=== PATIENT | male | born 1950 ===

== ENCOUNTER 2017-10-30 05:30 | Inpatient (IN) | payer BC ==
[~2017-10-30] VITALS: Ht 172.7 cm; Wt 108.6 kg
[2017-10-30] MEDS ORDERED: LACTATED RINGERS 1,000 ML IV SCH (06:14)
[2017-10-30] MEDS ORDERED: METF500T5 PO (06:16)
[2017-10-30] MEDS ORDERED: ATOR40TA78 PO (06:16)
[2017-10-30] MEDS ORDERED: LISI5TAB7 PO (06:16)
[2017-10-30] MEDS ORDERED: BUPIVACAINE/PF 0.5% ONE (06:20)
[2017-10-30] MEDS ORDERED: THROMBIN 5,000 UNIT VIAL TP ONE ×2 (06:20→08:26)
[2017-10-30] MEDS ORDERED: methylPREDNISolone SOD SUCC 125 MG/2 ML ONE (06:20)
[2017-10-30] MEDS ORDERED: EPINEPHRINE 1 MG/ML, 1ML ONE (06:20)
[2017-10-30] MEDS ORDERED: BACITRACIN 50,000 UNIT ONE (06:21)
[2017-10-30] MEDS ORDERED: MIDAZOLAM 1 MG/ML, 2ML ONE (06:21)
[2017-10-30] MEDS ORDERED: FENTANYL PF 250 MCG/5ML ONE (06:22)
[2017-10-30] MEDS ORDERED: WATER-INJECTION,STERILE 10 ML IV ONE (06:24)
[2017-10-30] MEDS ORDERED: CEFAZOLIN 1,000 MG ONE ×2 (06:24)
[2017-10-30] MEDS ORDERED: PROPOFOL 10 MG/ML, 20ML ONE (06:24)
[2017-10-30] MEDS ORDERED: ROCURONIUM 10MG/ML,5ML ONE (06:25)
[2017-10-30] MEDS ORDERED: NEOSTIGMINE 1 MG/ML, 10ML ONE (06:26)
[2017-10-30] MEDS ORDERED: GLYCOPYRROLATE 0.4 MG/2 ML, 2ML ONE (06:26)
[2017-10-30 06:42] VITALS: BP 155/89
[2017-10-30] MEDS ORDERED: MEPERIDINE/PF 25MG/0.5ML IVPush PRN (07:00)
[2017-10-30] MEDS ORDERED: OxyconTIN ER 10 MG TAB.ER PO ONE (07:00)
[2017-10-30] MEDS ORDERED: HYDROmorphone 1 MG/ML, 1ML IV PRN (07:00)
[2017-10-30] MEDS ORDERED: ONDANSETRON ODT 8 MG PO PRN (07:00)
[2017-10-30] MEDS ORDERED: PROMETHAZINE 25 MG SUPP PR PRN (07:00)
[2017-10-30] MEDS ORDERED: OXYcodone 5 MG/5 ML ORAL.SOL UDC PO PRN (07:00)
[2017-10-30] MEDS ORDERED: FENTANYL PF 100 MCG/2ML IV PRN (07:00)
[2017-10-30] MEDS ORDERED: ACETAMINOPHEN 500 MG TABLET PO ONE (07:00)
[2017-10-30] MEDS ORDERED: PROMETHAZINE 25 MG/ML, 1ML IV PRN (07:00)
[2017-10-30] MEDS ORDERED: LABETALOL 5MG/ML, 20ML IV PRN (07:00)
[2017-10-30] MEDS ORDERED: ONDANSETRON 2MG/ML, 2ML IV PRN (07:00)
[2017-10-30] MEDS ORDERED: PROMETHAZINE 12.5 MG SUPP PR PRN (07:00)
[2017-10-30] MEDS ORDERED: hydrALAzine 20 MG/ML, 1ML IV PRN (07:00)
[2017-10-30] MEDS ORDERED: OxyconTIN ER 10 MG TAB.ER ONE (07:06)
[2017-10-30] MEDS ORDERED: ACETAMINOPHEN 500 MG TABLET ONE (07:06)
[2017-10-30] MEDS ORDERED: BISACODYL 10 MG SUPP PR PRN (09:30)
[2017-10-30] MEDS ORDERED: HYDROmorphone PCA 30 MG/30 ML IV PRN (09:30)
[2017-10-30] MEDS ORDERED: PHARMACY MAY ADJ FOR RENAL FX MC PRN (09:30)
[2017-10-30] MEDS ORDERED: MAGNESIUM HYDROXIDE 8%, 30ML UDC PO PRN (09:30)
[2017-10-30] MEDS ORDERED: INSULIN REGULAR 100 UNITS/ML, 3ML VIAL SQ-INSULIN PRN (09:30)
[2017-10-30] MEDS ORDERED: LABETALOL 5MG/ML, 20ML IVPush PRN (09:30)
[2017-10-30] MEDS ORDERED: DIPHENHYDRAMINE 50 MG CAPSULE PO PRN (09:30)
[2017-10-30] MEDS ORDERED: ONDANSETRON 2MG/ML, 2ML IVPush PRN (09:30)
[2017-10-30] MEDS ORDERED: SENNA/DOCUSATE TABLET PO PRN (09:30)
[2017-10-30] MEDS ORDERED: OXYcodone 5 MG/5 ML ORAL.SOL UDC ONE (10:02)
[2017-10-30] MEDS ORDERED: morphine SULFATE 10 MG/ML, 1ML ONE ×2 (10:02→10:33)
[2017-10-30] MEDS: MORPHINE SULFATE 4 MG/ML, 1ML IVPush PRN ×5 (10:05→10:55)
[2017-10-30 13:07] VITALS: BP 137/86
[2017-10-30] MEDS: NS + 20MEQ KCL 1,000 ML IV SCH (15:15)
[2017-10-30] MEDS: CEFAZOLIN PMX 1GM/50ML 50 ML IVPB SCH ×2 (15:15→20:11)
[2017-10-30] MEDS: metFORMIN 500 MG TABLET PO SCH (20:10)
[2017-10-30] MEDS: ATORVASTATIN 40 MG TABLET PO SCH (20:10)
[2017-10-30 20:40] VITALS: BP 127/77
[2017-10-31 00:13] VITALS: BP 141/71
[2017-10-31] MEDS: NS + 20MEQ KCL 1,000 ML IV SCH ×2 (01:12→14:53)
[2017-10-31 04:28] VITALS: BP 136/78
[2017-10-31] MEDS: HYDROcodone/APAP 10/325 MG TABLET PO PRN ×4 (06:02→22:58)
[2017-10-31 07:26] VITALS: BP 130/72
[2017-10-31] MEDS: LISINOPRIL 5 MG TABLET PO SCH (08:53)
[2017-10-31] MEDS: metFORMIN 500 MG TABLET PO SCH ×2 (08:53→20:13)
[2017-10-31] MEDS: CYCLOBENZAPRINE 10 MG TABLET PO PRN ×2 (09:34→22:58)
[2017-10-31] MEDS: ACETAMINOPHEN 325 MG TABLET PO PRN (15:20)
[2017-10-31 20:00] VITALS: BP 117/63
[2017-10-31] MEDS: ATORVASTATIN 40 MG TABLET PO SCH (20:13)
[2017-11-01 00:49] VITALS: BP 126/74
[2017-11-01] MEDS: NS + 20MEQ KCL 1,000 ML IV SCH ×3 (00:52→21:53)
[2017-11-01] MEDS: HYDROcodone/APAP 10/325 MG TABLET PO PRN ×4 (02:51→21:59)
[2017-11-01] MEDS: ACETAMINOPHEN 325 MG TABLET PO PRN ×3 (02:51→15:33)
[2017-11-01 06:52] VITALS: BP 116/65
[2017-11-01] MEDS: LISINOPRIL 5 MG TABLET PO SCH (08:46)
[2017-11-01] MEDS: metFORMIN 500 MG TABLET PO SCH ×2 (08:46→21:53)
[2017-11-01 13:32] VITALS: BP 152/84
[2017-11-01 20:53] VITALS: BP 147/62
[2017-11-01] MEDS: ATORVASTATIN 40 MG TABLET PO SCH (21:53)
[2017-11-02 01:15] VITALS: BP 136/69
[2017-11-02] MEDS: HYDROcodone/APAP 10/325 MG TABLET PO PRN ×2 (05:52→12:17)
[2017-11-02] MEDS: NS + 20MEQ KCL 1,000 ML IV SCH (08:00)
[2017-11-02 08:09] VITALS: BP 149/80
[2017-11-02] MEDS: metFORMIN 500 MG TABLET PO SCH (08:29)
[2017-11-02] MEDS: LISINOPRIL 5 MG TABLET PO SCH (08:29)
[2017-11-02] MEDS ORDERED: HYDR-3307 PO (10:58)
[2017-11-02] MEDS ORDERED: CYCL-259 PO (10:58)
== END 2017-11-02 12:30 | disposition home or self-care (01) | DRG 516 ==
LOC: OUT 05:30 → 4NOR 11:27 → OUT 23:04
PROVIDERS: ADMIT Neurological Surgery; ATTEND Neurological Surgery
PROC: 00U20KZ Supplement Dura Mater with Nonautologous Tissue Substitute, Open Approach (ICD-10-PCS; 2017-10-30)
PROC: 01NB0ZZ Release Lumbar Nerve, Open Approach (ICD-10-PCS; principal; 2017-10-30 07:00)
DX: M48.061 Spinal stenosis, lumbar region without neurogenic claudication (principal); G96.0 Cerebrospinal fluid leak; I10 Essential (primary) hypertension; G47.30 Sleep apnea, unspecified; E78.00 Pure hypercholesterolemia, unspecified; E11.9 Type 2 diabetes mellitus without complications; M51.16 Intervertebral disc disorders with radiculopathy, lumbar region; Z88.8 Allergy status to other drugs, medicaments and biological substances; Z87.891 Personal history of nicotine dependence
CPT/HCPCS: 72100; 82962; J0171; J0690; J2250; J2270; J2405; J2704; J2710; J3010; J3480; J3490; C1781; J2930; J7120